=== PATIENT | male | born 1995 | race African-American/Black ===

== ENCOUNTER 2017-11-16 22:37 | Inpatient (IN) | payer OTHER ==
[~2017-11-16] VITALS: Ht 180.3 cm; Wt 75.6 kg
[~2017-11-16 22:37] MED LIST: LEVA1AER IN; MESAPOW PO; PRE5T PO
[2017-11-16] MEDS ORDERED: MEPERIDINE HCL (25 MG/ML) 1ML VIAL IV ONE (23:15)
[2017-11-16] MEDS ORDERED: ONDANSETRON HCL 4 MG/2 ML VIAL IV ONE (23:15)
[2017-11-16] MEDS ORDERED: SODIUM CHLORIDE 0.9% 1,000 ML IV ONE (23:15)
[2017-11-16 23:27] LABS: Hematocrit 26.5 % (41.0-53.0); Hemoglobin 8.8 g/dL (13.5-17.5); Mean Corpuscular Hemoglobin 28.6 pg (28.0-32.0); Mean Corpuscular Hgb Conc. 33.2 g/dL (32.0-36.0); Mean Corpuscular Volume 86.3 fL (80.0-100.0); Platelet Count (auto) 167 10^3/uL (140-450); Red Blood Cells 3.07 10^6/uL (4.5-5.90); Red Cell Distribution Width 17.2 % (11.8-14.3); White Blood Cell 5.5 10^3/uL (4.4-10.8)
[2017-11-16 23:33] LABS: Basophils % (manual) 0 (0.0-2.0); Blast Cells 0; Eosinophils % (manual) 0 (0-7); Myelocytes % 0; Promyelocytes % 0; Reactive Lymphocytes 0
[2017-11-16 23:44] LABS: Albumin 1.9 g/dL (3.4-5.0); BUN/Creatinine Ratio 23.9; Calcium 7.2 mg/dL (8.5-10.1); Potassium 4.1 mmol/L (3.5-5.1)
[2017-11-16] MEDS ORDERED: ENOXAPARIN SOD 60 MG/0.6 ML SYRINGE SC ONE (23:45)
[2017-11-16 23:49] LABS: Bilirubin, Total 0.5 mg/dL (0.2-1.0); Total Protein 4.9 g/dL (6.4-8.2)
[2017-11-17] VITALS (11 sets, daily range): BP systolic 95–116; BP diastolic 59–74
[2017-11-17 00:03] LABS: Band Neutrophils % (manual) 45; Lymphocytes % (manual) 18 (10.0-50.0); Metamyelocytes % 2; Monocytes % (manual) 7 (0-12)
[2017-11-17 00:10] LABS: INR 1.15 (0.9-1.15)
[2017-11-17] MEDS ORDERED: SODIUM CHLORIDE 0.9% 1,000 ML IV ONE ×2 (01:15→21:15)
[2017-11-17] MEDS ORDERED: PANT1INJ3 PO (03:22)
[2017-11-17] MEDS ORDERED: PRE1T PO (03:23)
[2017-11-17] MEDS ORDERED: CARV3.1240 PO (03:23)
[2017-11-17] MEDS ORDERED: TEMAZEPAM 15 MG CAP PO PRN (03:45)
[2017-11-17] MEDS ORDERED: ALBUTEROL SULF 2.5 MG/0.5ML(0.5%) NEB SOLN NEB PRN (03:45)
[2017-11-17] MEDS ORDERED: MORPHINE SULFATE 4 MG/ML SYR/VIAL IV PRN ×2 (03:45)
[2017-11-17] MEDS ORDERED: ONDANSETRON HCL 4 MG/2 ML VIAL IV PRN (03:45)
[2017-11-17] MEDS ORDERED: NITROGLYCERIN 0.4 MG SL TAB SL PRN (03:45)
[2017-11-17] MEDS ORDERED: ACETAMINOPHEN 325 MG TAB PO PRN (03:45)
[2017-11-17] MEDS: HYDROcodone-ACET 5/325MG TAB PO PRN ×2 (05:00→13:12)
[2017-11-17] MEDS: MESALAMINE 1.2 GM PO SCH ×2 (09:52→21:26)
[2017-11-17] MEDS: PANTOPRAZOLE 40 MG TAB PO SCH (10:00)
[2017-11-17] MEDS: FERROUS SULFATE 325 MG TAB PO SCH ×2 (10:00→18:03)
[2017-11-17] MEDS ORDERED: CARVEDILOL 3.125 MG TAB PO SCH (10:00)
[2017-11-17] MEDS ORDERED: ENOXAPARIN SOD 100 MG/1 ML SYRINGE SC SCH (10:00)
[2017-11-17] MEDS: predniSONE 20 MG TAB PO SCH (10:00)
[2017-11-17] MEDS ORDERED: MORPHINE SULFATE 8mg/ml INJ SDV IV PRN ×2 (15:30)
[2017-11-17] MEDS ORDERED: WARFARIN SODIUM 5 MG TAB PO ONE (18:00)
[2017-11-17] MEDS ORDERED: ALBUMIN 5% 250 ML IV ONE (20:45)
[2017-11-17] MEDS ORDERED: DIGOXIN (250MCG/ML) 2 ML AMPULE ONE (21:08)
[2017-11-17] MEDS ORDERED: DIGOXIN (250MCG/ML) 2 ML AMPULE IV ONE (21:15)
[2017-11-17] MEDS: ENOXAPARIN SOD 80 MG/0.8ML SYRINGE SC SCH (21:16)
[2017-11-17] MEDS: CARVEDILOL 3.125 MG TAB PO SCH (21:27)
[2017-11-17] MEDS ORDERED: MESALAMINE 400mg Delayed Release Cap PO SCH (22:00)
[2017-11-17] MEDS: SODIUM CHLORIDE 0.9% 1,000 ML IV SCH (23:00)
[2017-11-18] VITALS (78 sets, daily range): BP systolic 107–157; BP diastolic 64–95
[2017-11-18] MEDS: SODIUM CHLORIDE 0.9% 1,000 ML IV SCH ×2 (03:55→10:25)
[2017-11-18 04:27] LABS: White Blood Cell 3.3 10^3/uL (4.4-10.8)
[2017-11-18 04:30] LABS: Hematocrit 22.7 % (41.0-53.0); Mean Corpuscular Hemoglobin 28.5 pg (28.0-32.0); Mean Corpuscular Hgb Conc. 33.3 g/dL (32.0-36.0); Mean Corpuscular Volume 85.6 fL (80.0-100.0); Platelet Count (auto) 197 10^3/uL (140-450); Red Blood Cells 2.65 10^6/uL (4.5-5.90); Red Cell Distribution Width 16.8 % (11.8-14.3)
[2017-11-18 04:35] LABS: Hemoglobin 7.6 g/dL (13.5-17.5)
[2017-11-18 04:37] LABS: INR 1.1 (0.9-1.15); Partial Thromboplastin Time 31.3 sec (22.64-33.71)
[2017-11-18] MEDS: HYDROcodone-ACET 5/325MG TAB PO PRN ×2 (04:41→22:15)
[2017-11-18 04:48] LABS: BUN/Creatinine Ratio 28.4; Bilirubin, Total 0.5 mg/dL (0.2-1.0); Calcium 7.8 mg/dL (8.5-10.1); Potassium 4.5 mmol/L (3.5-5.1); Total Protein 5.3 g/dL (6.4-8.2)
[2017-11-18 05:22] LABS: Basophils % (manual) 0 (0.0-2.0); Blast Cells 0; Eosinophils % (manual) 0 (0-7); Lymphocytes % (manual) 14 (10.0-50.0); Metamyelocytes % 2; Monocytes % (manual) 10 (0-12); Myelocytes % 0; Promyelocytes % 0; Reactive Lymphocytes 0
[2017-11-18 05:24] LABS: Band Neutrophils % (manual) 20
[2017-11-18] MEDS: FERROUS SULFATE 325 MG TAB PO SCH ×2 (08:00→17:48)
[2017-11-18] MEDS: MESALAMINE 1.2 GM PO SCH (10:00)
[2017-11-18] MEDS: CARVEDILOL 3.125 MG TAB PO SCH (10:00)
[2017-11-18] MEDS: predniSONE 20 MG TAB PO SCH (10:24)
[2017-11-18] MEDS: ENOXAPARIN SOD 80 MG/0.8ML SYRINGE SC SCH ×2 (10:25→21:58)
[2017-11-18] MEDS: PANTOPRAZOLE 40 MG TAB PO SCH (10:25)
[2017-11-18] MEDS ORDERED: SODIUM FERR GLUC 62.5MG/5ML 125 MG in SODIUM CHL 0.9% 100 ML IV SCH (12:00)
[2017-11-18 12:56] LABS: White Blood Cell 4.2 10^3/uL (4.4-10.8)
[2017-11-18 12:58] LABS: Hematocrit 25.7 % (41.0-53.0); Hemoglobin 8.2 g/dL (13.5-17.5); Mean Corpuscular Hemoglobin 27.8 pg (28.0-32.0); Mean Corpuscular Hgb Conc. 32.1 g/dL (32.0-36.0); Mean Corpuscular Volume 86.4 fL (80.0-100.0); Platelet Count (auto) 226 10^3/uL (140-450); Red Blood Cells 2.97 10^6/uL (4.5-5.90); Red Cell Distribution Width 17.3 % (11.8-14.3)
[2017-11-18 12:59] LABS: Basophils % (manual) 0 (0.0-2.0); Blast Cells 0; Myelocytes % 0; Promyelocytes % 0; Reactive Lymphocytes 0
[2017-11-18] MEDS: AMIODARONE HCL 200 MG TAB PO SCH ×2 (13:52→21:56)
[2017-11-18] MEDS ORDERED: diphenhdrAMINE HCL 50 MG/1 ML VL IV ONE (14:15)
[2017-11-18 14:25] LABS: Band Neutrophils % (manual) 15; Eosinophils % (manual) 1 (0-7); Lymphocytes % (manual) 12 (10.0-50.0); Metamyelocytes % 2; Monocytes % (manual) 14 (0-12)
[2017-11-18] MEDS ORDERED: PROMETHAZINE HCL 25 MG/ML 1ML IM ONE (15:15)
[2017-11-18 15:26] LABS: Urine Bacteria NONE SEEN /hpf (None Seen); Urine Blood Negative /uL (Negative); Urine Mucus FEW (None Seen); Urine Specific Gravity 1.044 (1.001-1.035); Urine WBC 1 /hpf (0 - 3)
[2017-11-18 16:22] LABS: Alcohol, Urine < 3.0 mg/dL (0-5); Amphetamine Screen, Urine NEGATIVE (NEGATIVE); Barbiturate Scree,Urine NEGATIVE (NEGATIVE); Benzodiazephine Screen, Urine NEGATIVE (NEGATIVE); Cannabinoid Screen, Urine NEGATIVE (NEGATIVE); Cocaine Screen, Urine NEGATIVE (NEGATIVE); Opiate Scree,Urine POSITIVE (NEGATIVE); Phencyclidine Screen, Urine NEGATIVE (NEGATIVE)
[2017-11-18] MEDS ORDERED: WARFARIN SODIUM 5 MG TAB PO ONE (17:00)
[2017-11-18] MEDS ORDERED: HYDROCORTISONE 100 MG/60 ML RECT ENEMA PR SCH (22:00)
[2017-11-19] VITALS (8 sets, daily range): BP systolic 114–125; BP diastolic 63–81
[2017-11-19 04:48] LABS: Calcium 7.9 mg/dL (8.5-10.1); Potassium 4.5 mmol/L (3.5-5.1)
[2017-11-19 04:50] LABS: Bilirubin, Total 0.4 mg/dL (0.2-1.0); Hemoglobin 7.7 g/dL (13.5-17.5); Red Blood Cells 2.75 10^6/uL (4.5-5.90); Total Protein 5.5 g/dL (6.4-8.2)
[2017-11-19 04:52] LABS: INR 1.54 (0.9-1.15); Partial Thromboplastin Time 35.1 sec (22.64-33.71); Prothrombin Time 16.9 sec (9.37-12.3)
[2017-11-19 04:54] LABS: Hematocrit 23.3 % (41.0-53.0); Mean Corpuscular Volume 84.9 fL (80.0-100.0); Platelet Count (auto) 243 10^3/uL (140-450); Red Cell Distribution Width 16.8 % (11.8-14.3); White Blood Cell 5.4 10^3/uL (4.4-10.8)
[2017-11-19 04:57] LABS: Basophils % (manual) 0 (0.0-2.0); Blast Cells 0; Eosinophils % (manual) 0 (0-7); Metamyelocytes % 0; Myelocytes % 0; Promyelocytes % 0; Reactive Lymphocytes 0
[2017-11-19 05:19] LABS: Band Neutrophils % (manual) 10; Lymphocytes % (manual) 23 (10.0-50.0); Monocytes % (manual) 11 (0-12)
[2017-11-20 09:28] LABS: Folate (Folic Acid) > 24.00 ng/mL (5.38-24)
== END 2017-11-19 06:53 | disposition critical access hospital (66) | DRG 299 ==
LOC: EDBD 22:37 → ER 22:37 → OVERFLOW 22:38 → ICU WEST 11-17 15:04
PROVIDERS: ADMIT Nurse Practitioner; ATTEND Family Medicine
DX: I82.432 Acute embolism and thrombosis of left popliteal vein (principal); I26.99 Other pulmonary embolism without acute cor pulmonale; E44.0 Moderate protein-calorie malnutrition; D64.9 Anemia, unspecified; I82.403 Acute embolism and thrombosis of unspecified deep veins of lower extremity, bilateral; Z82.49 Family history of ischemic heart disease and other diseases of the circulatory system; Z86.718 Personal history of other venous thrombosis and embolism; Z86.711 Personal history of pulmonary embolism; Z68.23 Body mass index [BMI] 23.0-23.9, adult
CPT/HCPCS: 36415; 71045; 71275; 80053; 80307; 81001; 82607; 82746; 83090; 83540; 83550; 83735; 83880; 84443; 84484; 85007; 85025; 85027; 85379; 85610; 85730; 86850; 86900; 86901; 86920; 87081; 87493; 93005; 93306; 93971; 96361; 96372; 96374; 96375; 99291; G0378; J2405